=== PATIENT | female | born 1995 | race Caucasian/White ===

== ENCOUNTER 2016-04-17 18:23 | Emergency (ER) | payer OTHER ==
[2016-04-17 20:10] LABS: BASOPHIL % 0.3 % (0-2); PLATELET COUNT 162 x10^3mcL (130-400)
[2016-04-17 20:15] LABS: microscopic required? YES; urine erythrocyte TRACE (NEGATIVE)
[2016-04-17 20:16] LABS: CARBON DIOXIDE 23.1 mmol/L (21-32); CHLORIDE SERUM 101 mmol/L (98-107); CREATININE SERUM 0.9 mg/dL (0.6-1.0); GFR1 > 60 mL/min; GLUCOSE SERUM 87 mg/dL (74-106); POTASSIUM SERUM 3.6 mmol/L (3.5-5.1); SODIUM SERUM 134 mmol/L (136-145)
[2016-04-17 20:24] LABS: ALBUMIN 3.9 g/dL (3.4-5.0); ALKALINE PHOSPHATASE 59 U/L (46-116); ALT/SGPT 18 U/L (14-59); AST/SGOT 15 U/L (15-37); BILIRUBIN TOTAL 1.1 mg/dL (0.20-1.00); C REACTIVE PROTEIN 1.5 mg/dL (<=0.9); TOTAL PROTEIN, SERUM 7.2 g/dL (6.4-8.2)
[2016-04-17 20:29] LABS: CK-MB < 0.5 ng/mL (0-3.6); CREATINE KINASE 55 U/L (26-192)
[2016-04-17 20:31] LABS: T3 TOTAL 0.82 ng/mL
[2016-04-17 20:51] LABS: ERYTHROCYTE SED RATE 26 mm/hr (0-20)
[2016-04-17 20:57] LABS: FREE T4 1.11 ng/dL (0.76-1.46); FREE THYROXINE INDEX 2.2 ug/dL (1.4-4.5); T4(THYROXINE) 6.8 ug/dL (4.7-13.3)
[2016-04-17 23:23] VITALS: BP 93/49
== END 2016-04-17 23:25 | disposition home or self-care (01) ==
LOC: ED 18:23
PROVIDERS: Specialist
DX: E86.0 Dehydration (principal)
CPT/HCPCS: 83880; 84439; 87804; J1885; J3010; J7030; Q0092

== ENCOUNTER 2018-11-18 21:40 | Emergency (ER) | payer OTHER ==
[~2018-11-18] VITALS: Ht 152.4 cm; Wt 44.5 kg
[2018-11-18 22:14] VITALS: Ht 152.4 cm; Wt 44.5 kg
[2018-11-19 00:56] VITALS: BP 101/62
== END 2018-11-19 00:56 | disposition home or self-care (01) ==
LOC: ED 21:40
DX: J11.1 Influenza due to unidentified influenza virus with other respiratory manifestations (principal)
CPT/HCPCS: 87804